=== PATIENT | female | born 1960 | race Caucasian/White ===

== ENCOUNTER 2016-08-15 19:40 | Inpatient (IN) | payer OTHER, MEDICAID ==
[~2016-08-15] VITALS: Ht 154.9 cm; Wt 47.2 kg
[~2016-08-15 19:40] MED LIST: ALAVERT10 M2 PO; CHERATUSSIN AC 15 ML; CLARITIN10 MG PO; COLACE100 MG PO; COLD RELIEF PO; DEPAKOTE ER250 M1 PO; DIVALPROEX SOD250 M2 PO; DOCUSATE SODIU100 M1; FLUTICASON; FLUTICASON0.05 MG/Ac INH; FOLIC ACID1 MG PO; LAC PO; LEVOTHYROXINE0.1 M2 PO; LIPI10 PO; MAC100 PO; MAPAP EXTRA ST500 MG; MAPAP EXTRA ST500 MG PO; MILK OF MA400 MG/5 M PO; OMEPRAZOLE DR20 M1 PO; QUETIAPINE FUMA50 M1 PO; SEROQUEL XR50 MG PO; VITAMIN D1000 I1 PO; VITAMIN D31000 I2 PO; XANAX0.5 MG PO; [UNRECOGNIZED DRUG - OTHER]; [UNRECOGNIZED DRUG - OTHER]; [UNRECOGNIZED DRUG - OTHER] PO
[2016-08-15 21:04] LABS: BASOPHIL % 0.1 % (0-2); PLATELET COUNT 183 x10^3mcL (130-400); RED CELL DISTRIBUTION WIDTH 14.8 % (11.5-14.5)
[2016-08-15 21:11] LABS: CALCIUM 8.6 mg/dL (8.5-10.1); CARBON DIOXIDE 28.4 mmol/L (21-32); CREATININE SERUM 1.2 mg/dL (0.6-1.0); POTASSIUM SERUM 3.7 mmol/L (3.5-5.1)
[2016-08-15 21:15] LABS: BILIRUBIN TOTAL 0.3 mg/dL (0.20-1.00)
[2016-08-15 21:16] LABS: ALBUMIN 2.8 g/dL (3.4-5.0)
[2016-08-15] MEDS ORDERED: DEPAKOTE ER250 M1 GT (22:31)
[2016-08-15] MEDS ORDERED: Q-TUSSIN100 MG/5 M GT (22:32)
[2016-08-15] MEDS ORDERED: PROAIR RES117 MCG/Ac IH (22:33)
[2016-08-15] MEDS ORDERED: ATORVASTATIN CA10 M1 GT (22:34)
[2016-08-15] MEDS ORDERED: LAXATIVE5 M1 GT (22:34)
[2016-08-15] MEDS ORDERED: LEVOTHYROXINE0.1 M2 GT (22:35)
[2016-08-15] MEDS ORDERED: SILVADENE1% TOP (22:35)
[2016-08-15 22:37] LABS: microscopic required? YES; urine erythrocyte NEGATIVE (NEGATIVE)
[2016-08-15] MEDS ORDERED: CALCIUM 500 +1 EACH GT (22:40)
[2016-08-15] MEDS ORDERED: D-20001 TAB GT (22:41)
[2016-08-15] MEDS ORDERED: NATURE'S BLEND F1 MG GT (22:41)
[2016-08-15] MEDS ORDERED: VERAMYST27.5 MCG/1 (22:42)
[2016-08-15] MEDS ORDERED: CLARITIN10 MG GT (22:42)
[2016-08-15] MEDS ORDERED: MAPAP500 M2 GT (22:43)
[2016-08-15] MEDS ORDERED: GOOD NEIGH1200 MG/15 GT (22:45)
[2016-08-15] MEDS ORDERED: GUAIFENESIN DM GT (22:46)
[2016-08-16] VITALS (9 sets, daily range): BP systolic 85–145; BP diastolic 34–102
[2016-08-16 01:38] LABS: MAGNESIUM 2.1 mg/dL (1.8-2.4); PHOSPHOROUS 4.3 mg/dL (2.5-4.9)
[2016-08-16 01:39] LABS: CHOLESTEROL/HDL RATIO 3.2
[2016-08-16 01:45] LABS: T3 TOTAL 0.76 ng/mL
[2016-08-16 01:48] LABS: FREE T4 1.86 ng/dL (0.76-1.46); FREE THYROXINE INDEX 4.4 ug/dL (1.4-4.5); T4(THYROXINE) 11.6 ug/dL (4.7-13.3)
[2016-08-16 06:27] LABS: BASOPHIL % 0.5 % (0-2); PLATELET COUNT 172 x10^3mcL (130-400); RED CELL DISTRIBUTION WIDTH 14.5 % (11.5-14.5)
[2016-08-16 06:46] LABS: CALCIUM 7.7 mg/dL (8.5-10.1); CARBON DIOXIDE 28.7 mmol/L (21-32); CREATININE SERUM 1.1 mg/dL (0.6-1.0); POTASSIUM SERUM 4.6 mmol/L (3.5-5.1)
[2016-08-17 05:41] VITALS: BP 93/49
[2016-08-17 06:31] LABS: BASOPHIL % 0.1 % (0-2); PLATELET COUNT 143 x10^3mcL (130-400)
[2016-08-17 06:51] LABS: CALCIUM 7.2 mg/dL (8.5-10.1); CHLORIDE SERUM 109 mmol/L (98-107); GFR1 > 60 mL/min; GLUCOSE SERUM 81 mg/dL (74-106); MAGNESIUM 1.8 mg/dL (1.8-2.4); PHOSPHOROUS 1.9 mg/dL (2.5-4.9); POTASSIUM SERUM 3.5 mmol/L (3.5-5.1); SODIUM SERUM 145 mmol/L (136-145)
[2016-08-17 07:19] LABS: RED CELL DISTRIBUTION WIDTH 14.7 % (11.5-14.5)
[2016-08-17 09:32] VITALS: BP 126/96
[2016-08-17 13:09] VITALS: BP 99/44
[2016-08-17 16:18] VITALS: BP 108/54
[2016-08-17 21:42] VITALS: BP 108/60
[2016-08-18 05:54] VITALS: BP 80/48
[2016-08-18 06:05] LABS: BASOPHIL % 0.4 % (0-2); PLATELET COUNT 151 x10^3mcL (130-400)
[2016-08-18 06:12] LABS: CALCIUM 7.2 mg/dL (8.5-10.1); CARBON DIOXIDE 25.7 mmol/L (21-32); CHLORIDE SERUM 111 mmol/L (98-107); CREATININE SERUM 0.8 mg/dL (0.6-1.0); GFR1 > 60 mL/min; GLUCOSE SERUM 85 mg/dL (74-106); PHOSPHOROUS 2.4 mg/dL (2.5-4.9); POTASSIUM SERUM 3.5 mmol/L (3.5-5.1); SODIUM SERUM 144 mmol/L (136-145)
[2016-08-18 06:35] LABS: RED CELL DISTRIBUTION WIDTH 14.6 % (11.5-14.5)
[2016-08-18 14:00] VITALS: BP 95/48
[2016-08-18 18:57] VITALS: BP 98/50
[2016-08-18 21:33] VITALS: BP 106/82
[2016-08-19 05:48] VITALS: BP 99/53
[2016-08-19 06:31] LABS: CALCIUM 7.6 mg/dL (8.5-10.1); CARBON DIOXIDE 27.2 mmol/L (21-32); CHLORIDE SERUM 112 mmol/L (98-107); CREATININE SERUM 0.8 mg/dL (0.6-1.0); GFR1 > 60 mL/min; GLUCOSE SERUM 81 mg/dL (74-106); MAGNESIUM 1.9 mg/dL (1.8-2.4); PHOSPHOROUS 2.7 mg/dL (2.5-4.9); POTASSIUM SERUM 3.5 mmol/L (3.5-5.1); SODIUM SERUM 146 mmol/L (136-145)
[2016-08-19 07:25] LABS: BASOPHIL % 0.6 % (0-2); PLATELET COUNT 174 x10^3mcL (130-400); RED CELL DISTRIBUTION WIDTH 14.2 % (11.5-14.5)
[2016-08-19 09:00] VITALS: BP 100/54
[2016-08-19 12:20] VITALS: BP 84/33
[2016-08-19 16:57] VITALS: BP 101/48
[2016-08-19 21:50] VITALS: BP 90/70
[2016-08-20 06:56] VITALS: BP 107/42
[2016-08-20 07:06] LABS: BASOPHIL % 0.4 % (0-2); PLATELET COUNT 236 x10^3mcL (130-400); RED CELL DISTRIBUTION WIDTH 13.8 % (11.5-14.5)
[2016-08-20 07:09] LABS: CARBON DIOXIDE 25.9 mmol/L (21-32); CHLORIDE SERUM 109 mmol/L (98-107); CREATININE SERUM 0.8 mg/dL (0.6-1.0); GFR1 > 60 mL/min; GLUCOSE SERUM 127 mg/dL (74-106); MAGNESIUM 1.9 mg/dL (1.8-2.4); PHOSPHOROUS 2.2 mg/dL (2.5-4.9); POTASSIUM SERUM 3.2 mmol/L (3.5-5.1); SODIUM SERUM 142 mmol/L (136-145)
[2016-08-20 10:02] VITALS: BP 92/37; BP 92/67
[2016-08-20 10:28] VITALS: BP 88/38
[2016-08-20 14:25] VITALS: BP 100/32
[2016-08-20] MEDS ORDERED: ZOS3PM IV (14:50)
[2016-08-20] MEDS ORDERED: LAC GT (14:51)
[2016-08-20 17:42] VITALS: BP 114/52
[2016-08-20 17:45] VITALS: BP 114/52
== END 2016-08-20 18:25 | DRG 177 ==
LOC: ED 19:40 → DU 22:29 → MU 22:29 → DU 23:40 → MU 08-19 12:37
PROVIDERS: Emergency Medicine; Family Medicine; Internal Medicine Gastroenterology; ADMIT Family Medicine
PROC: 0DH63UZ Insertion of Feeding Device into Stomach, Percutaneous Approach (ICD-10-PCS; principal; 2016-08-19 12:50)
PROC: 3E0G76Z Introduction of Nutritional Substance into Upper GI, Via Natural or Artificial Opening (ICD-10-PCS; 2016-08-19 12:50)
DX: J69.0 Pneumonitis due to inhalation of food and vomit (principal); E43 Unspecified severe protein-calorie malnutrition; J96.01 Acute respiratory failure with hypoxia; N17.0 Acute kidney failure with tubular necrosis; I50.43 Acute on chronic combined systolic (congestive) and diastolic (congestive) heart failure; Z68.1 Body mass index [BMI] 19.9 or less, adult; N39.0 Urinary tract infection, site not specified; E87.0 Hyperosmolality and hypernatremia; E86.0 Dehydration; Q90.9 Down syndrome, unspecified; F79 Unspecified intellectual disabilities; E03.9 Hypothyroidism, unspecified; J44.9 Chronic obstructive pulmonary disease, unspecified; E78.5 Hyperlipidemia, unspecified; G30.9 Alzheimer's disease, unspecified; F02.80 Dementia in other diseases classified elsewhere, unspecified severity, without behavioral disturbance, psychotic disturbance, mood disturbance, and anxiety; E87.6 Hypokalemia; E83.39 Other disorders of phosphorus metabolism; F31.9 Bipolar disorder, unspecified
CPT/HCPCS: 36600; 43235; 83880; 84439; 87804; 90658; 92610-GN; J0456; J0696; J1200; J1610; J2250; J2310; J2543; J3010; J3480; J3490; J7030; J7040; J7050; J7620; Q0092